=== PATIENT | male | born 1960 | race Hispanic/Latino ===

== ENCOUNTER 2017-06-11 11:09 | Observation (INO) | payer BC ==
[2017-06-11 11:25] VITALS: BMI 44.9
[2017-06-11] MEDS ORDERED: Sodium Chloride 0.9% 1,000 ML IV STA (12:33)
[2017-06-11 13:13] LABS: BASO # 0.02 K/mm3 (0.0-2.0); BASO % 0.2 % (0.0-3.0); EOS # 0.1 (0.0-0.7); EOS % 1.2 % (1.5-5.0); GRAN # 6.63 (1.4-6.5); GRAN % 76.3 % (50.0-68.0); HEMATOCRIT 40.5 % (42.0-52.0); LYMPH # 1.6 (1.2-3.4); LYMPH % 18.6 % (22.0-35.0); MEAN CELL VOLUME 82.2 fl (80.0-105.0); MEAN CORPUSCULAR HGB CONC 31.6 g/dl (31.0-37.0); MONO # 0.3 (0.1-0.6); MONO % 3.7 % (1.0-6.0); RED CELL DISTRIBUTION WIDTH 15.4 % (11.5-14.5); WHITE BLOOD COUNT 8.7 10^3/ul (4.5-11.0)
[2017-06-11 13:18] LABS: ALB/GLOB RATIO 1.4 (1.1-1.8); ALKALINE PHOSPHATASE 56 U/L (38-126); ALT/SGPT 40 U/L (7-56); AST/SGOT 42 U/L (17-59); BILIRUBIN,TOTAL 0.8 mg/dL (0.2-1.3); BLOOD UREA NITROGEN 45 mg/dL (7-21); CALCIUM 9.6 mg/dL (8.4-10.5); CARBON DIOXIDE 29 mmol/L (21-33); CHLORIDE 101 mmol/L (98-107); GFR AFRICAN-AMERICAN 47; GLUCOSE,RANDOM 148 mg/dL (70-110); POTASSIUM 4.4 mmol/L (3.6-5.0); SODIUM 142 mmol/L (132-148); TOTAL PROTEIN 7.7 g/dL (5.8-8.3)
--- NOTE | 2017-06-11 13:19 | ED PDOC ---
Arrival/HPI - General Chief Complaint: Trauma Time Seen by Provider: 06/11/17 11:33 Historian: Family (son ) EM Caveat: Altered Mental Status - History of Present Illness Narrative History of Present Illness (Text): 06/11/17 13:00 A 56 year old obese male, whose past medical history includes hypertension on 3 different medications, anxiety on 8 mg of Xanax, and insomnia, presents to the Emergency department post status fall, which occurred 4 days ago. The patient accidentally tripped and fell, he went to his PMD who diagnosed him with a concussion without a head CT. Now the patient's son brought the patient into the Emergency department for altered mental status characterized with increased somnolence, drowsy, and often abnormal speech. The patient denies any nausea, vomiting, diarrhea, fever, chills, cough, chest pain, or any other complaints at this time. The patient admits to taking "quitala." Time/Duration: < week (x 4 days ) Symptom Onset: Sudden Symptom Course: Unchanged Activities at Onset: Significant (accidental fall ) Context: Home, Tripped Past Medical History - Provider Review Nursing Documentation Reviewed: Yes - Infectious Disease Hx of Infectious Diseases: None - Tetanus Immunization Tetanus Immunization: Unknown - Cardiac Hx Cardiac Disorders: Yes ([place] 07/22/13) Hx Hypertension: Yes - Pulmonary Hx Respiratory Disorders: Yes (respiratory failure/intubated 07/22/13) Hx Pneumonia: Yes - Neurological Hx Neurological Disorder: No - HEENT Hx HEENT Disorder: No - Renal Hx Renal Disorder: No - Endocrine/Metabolic Hx Endocrine Disorders: No - Hematological/Oncological Hx Blood Disorders: Yes Hx Anemia: Yes - Integumentary Hx Dermatological Disorder: No - Musculoskeletal/Rheumatological Hx Musculoskeletal Disorders: Yes Hx Arthritis: Yes (neck) - Gastrointestinal Hx Gastrointestinal Disorders: No - Genitourinary/Gynecological Hx Genitourinary Disorders: No - Psychiatric Hx Psychophysiologic Disorder: Yes Hx Anxiety: Yes Hx Depression: Yes Hx Substance Use: No - Surgical History Hx Tonsillectomy: Yes - Suicidal Assessment Feels Threatened In Home Enviroment: No Family/Social History - Physician Review Nursing Documentation Reviewed: Yes Family/Social History: No Known Family HX Smoking Status: Former Smoker 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) Hx Substance Use: No Substance used: percocet Hx Substance Use Treatment: No Allergies/Home Meds Allergies/Adverse Reactions: Allergies No Known Allergies Allergy (Verified 06/11/17 11:39) Home Medications: Home Meds Medication Instructions Recorded Confirmed Alprazolam [Xanax] 4 mg PO BID 07/22/13 06/11/17 Review of Systems - Physician Review All systems were reviewed & negative as marked: Yes - Review of Systems Constitutional: absent: Fevers Respiratory: absent: Cough Cardiovascular: absent: Chest Pain Neurological: Speech Changes, Other (AMS; increased somnolence, drowzy, and often abnormal speech) Physical Exam - Physical Exam Physical Exam Limitations: Altered Mental Status Vital Signs Reviewed: Yes Vital Signs Temp Pulse Resp BP Pulse Ox 06/11/17 14:04 98.2 F 90 19 122/79 95 06/11/17 11:21 98.2 F 104 H 18 94/60 L 94 L Temperature: Afebrile Blood Pressure: Hypotensive Pulse: Tachycardic Respiratory Rate: Apneic Appearance: Positive for: Well-Appearing, Non-Toxic, Comfortable Pain Distress: None Mental Status: Positive for: Alert and Oriented X 3 - Systems Exam Head: Present: Normocephalic, Laceration (right side healing contusion ) Pupils: Present: PERRL Extroacular Muscles: Present: EOMI Conjunctiva: Present: Normal Mouth: Present: Moist Mucous Membranes Neck: Present: Normal Range of Motion Respiratory/Chest: Present: Clear to Auscultation, Good Air Exchange. No: Respiratory Distress, Accessory Muscle Use Cardiovascular: Present: Regular Rate and Rhythm, Normal S1, S2. No: Murmurs Abdomen: Present: Normal Bowel Sounds. No: Tenderness, Distention, Peritoneal Signs Back: Present: Normal Inspection Upper Extremity: Present: Normal Inspection. No: Cyanosis, Edema Lower Extremity: Present: Normal Inspection. No: Edema Neurological: Present: GCS=15, CN II-XII Intact, Speech Normal Skin: Present: Warm, Dry, Normal Color. No: Rashes Psychiatric: Present: Alert. No: Oriented x 3 (oriented x 2; person and place ) Medical Decision Making ED Course and Treatment: 06/11/17 13:28 Impression: A 56 year old male with AMS. Differential Diagnosis included but are not limited to: Plan: -- EKG -- Head CT -- IV Fluids -- Chest X-ray -- Urinalysis -- Reassess and disposition Progress Notes: 06/11/17 17:28 Despite hours of observation in Ed his sensorium is not clearing . His alteration of mental status has been been perisitent and is likley due to hyerpemedication, w/ possible concomitant illicit drug abue, including even possible overdose on his antiHTNsives. Pt has beennoted to be incontinent of urine and remains inaaporpiate with his speech. Will need admission for moniroing until sensorium clears as well and for dehydration. - Lab Interpretations Lab Results: 06/11/17 13:05 06/11/17 13:00 Lab Results 06/11/17 15:45: Urine Opiates Screen Negative, Urine Methadone Screen Negative, Ur Barbiturates Screen Negative, Ur Phencyclidine Scrn Negative, Ur Amphetamines Screen Negative, U Benzodiazepines Scrn Positive H, U Oth Cocaine Metabols Negative, U Cannabinoids Screen Psitive 06/11/17 13:05: WBC 8.7 D, RBC 4.93, Hgb 12.8 L, Hct 40.5 L, MCV 82.2, MCH 26.0 , MCHC 31.6, RDW 15.4 H, Plt Count 302, MPV 9.0, Gran % 76.3 H, Lymph % (Auto) 18.6 L, [place] % (Auto) 3.7, Eos % (Auto) 1.2 L, Baso % (Auto) 0.2, Gran # 6.63 H , Lymph # 1.6, [place] # 0.3, Eos # 0.1, Baso # 0.02 06/11/17 13:00: Alcohol, Quantitative < 10 06/11/17 13:00: Sodium 142, Potassium 4.4, Chloride 101, Carbon Dioxide 29, Anion Gap 16, BUN 45 H, Creatinine 1.8 H, Est GFR ( Amer) 47, Est GFR ( Non-Af Amer) 39, Random Glucose 148 H, Calcium 9.6, Total Bilirubin 0.8, AST 42 , ALT 40, Alkaline Phosphatase 56, Troponin I < 0.01, Total Protein 7.7, Albumin 4.5, Globulin 3.1, Albumin/Globulin Ratio 1.4 06/11/17 13:00: PT 12.8 H, INR 1.16 H, APTT 28.0 - RAD Interpretation Radiology Orders: 06/11/17 11:44 HEAD W/O CONTRAST [CT] Stat 06/11/17 12:28 CHEST PORTABLE [RAD] Stat - Medication Orders Current Medication Orders: Discontinued Medications Sodium Chloride (Sodium Chloride 0.9%) 1,000 mls @ 999 mls/hr IV .Q1H1M STA Stop: 06/11/17 13:33 Last Admin: 06/11/17 12:57 Dose: 999 mls/hr eMAR Start Stop Document 06/11/17 12:57 OCS (Rec: 06/11/17 12:57 OCS [id number]) Intravenous Solution Start Date 06/11/17 Start Time 12:57 End Date 06/11/17 End time 13:58 Total Infusion Time 61 - Scribe Statement The provider has reviewed the documentation as recorded by the Elisabethibowen Avilez Provider Scribe Attestation: All medical record entries made by the Scribe were at my direction and personally dictated by me. I have reviewed the chart and agree that the record accurately reflects my personal performance of the history, physical exam, medical decision making, and the department course for this patient. I have also personally directed, reviewed, and agree with the discharge instructions and disposition. Disposition/Present on Arrival - Present on Arrival Any Indicators Present on Arrival: No History of DVT/PE: No History of Uncontrolled Diabetes: No Urinary Catheter: No History of Decub. Ulcer: No History Surgical Site Infection Following: None - Disposition Have Diagnosis and Disposition been Completed?: Yes Diagnosis: Altered mental status, Dehydration Disposition: HOME/ ROUTINE Disposition Time: 17:34 Patient Plan: Admission Condition: GOOD Referrals: Akbar Buck MD [Primary Care Provider] - Follow up with primary Forms: [employer] ([place])
[2017-06-11 13:20] LABS: INR 1.16 (0.93-1.08)
[2017-06-11 13:33] LABS: TROPONIN I < 0.01 ng/mL
--- NOTE | 2017-06-11 13:55 | CT ---
PROCEDURE: CT HEAD WITHOUT CONTRAST. HISTORY: s/p fall headache COMPARISON: Images from noncontrast head CT performed 03/20/12 TECHNIQUE: Axial computed tomography images were obtained through the head/brain without intravenous contrast. Radiation dose: Total exam DLP = 814.48 mGy-cm. This CT exam was performed using one or more of the following dose reduction techniques: Automated exposure control, adjustment of the mA and/or kV according to patient size, and/or use of iterative reconstruction technique. FINDINGS: HEMORRHAGE: No intracranial hemorrhage. BRAIN: No mass effect or edema. Intracranial atherosclerosis. 2 mm probable right basal ganglia lacunar infarct. Scattered periventricular and subcortical white matter hypodensities, which are nonspecific, but often seen with chronic microvascular ischemic disease. Please note that MRI with diffusion imaging is more sensitive in the detection of acute ischemic event. VENTRICLES: No hydrocephalus. CALVARIUM: Unremarkable. PARANASAL SINUSES: Unremarkable as visualized. No significant inflammatory changes. MASTOID AIR CELLS: Unremarkable as visualized. No inflammatory changes. OTHER FINDINGS: None. IMPRESSION: 2 mm probable right basal ganglia lacunar infarct. Scattered nonspecific white matter changes.
--- NOTE | 2017-06-11 14:33 | RAD ---
HISTORY: ams COMPARISON: Chest x-ray performed 02/11/14 TECHNIQUE: Chest, one view. FINDINGS: Examination limited by habitus and hypoinflation. LUNGS: Right hilar prominence. No focal consolidation. Please note that chest x-ray has limited sensitivity for the detection of pulmonary masses. PLEURA: No significant pleural effusion identified. No definite pneumothorax . CARDIOVASCULAR: Cardiomegaly. OSSEOUS STRUCTURES: Degenerative changes. VISUALIZED UPPER ABDOMEN: Unremarkable. OTHER FINDINGS: Metallic clip projects over the left lateral chest. . IMPRESSION: Cardiomegaly. Right hilar prominence. Hypoinflation.
[2017-06-11] MEDS ORDERED: Aspirin 325 mg EC Tablets PO STA ×2 (18:42→18:45)
[2017-06-11] MEDS ORDERED: Sodium Chloride 0.9% 1,000 ML IV SCH (18:45)
[2017-06-11 19:28] LABS: CHOLESTEROL 260 mg/dL (130-200)
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
[2017-06-11] MEDS ORDERED: Pneumococcal 23-Valent Vaccine IM ONE (22:01)
[2017-06-11] MEDS ORDERED: Influenza Vaccine 60 mcg/0.5 mL SYR (4YR UP) IM ONE (22:01)
[2017-06-12 07:22] LABS: BASO # 0.02 K/mm3 (0.0-2.0); BASO % 0.3 % (0.0-3.0); EOS # 0.1 (0.0-0.7); EOS % 1.7 % (1.5-5.0); GRAN # 5.12 (1.4-6.5); GRAN % 65.5 % (50.0-68.0); HEMATOCRIT 39.7 % (42.0-52.0); LYMPH # 2.1 (1.2-3.4); LYMPH % 27.4 % (22.0-35.0); MEAN CELL VOLUME 82.9 fl (80.0-105.0); MEAN CORPUSCULAR HEMOGLOBIN 25.7 pg (25.0-35.0); MEAN PLATELET VOLUME 9.1 fl (7.0-11.0); MONO # 0.4 (0.1-0.6); MONO % 5.1 % (1.0-6.0); RED CELL DISTRIBUTION WIDTH 15.8 % (11.5-14.5); WHITE BLOOD COUNT 7.8 10^3/ul (4.5-11.0)
[2017-06-12 07:27] LABS: ALB/GLOB RATIO 1.4 (1.1-1.8); ALKALINE PHOSPHATASE 57 U/L (38-126); ALT/SGPT 34 U/L (7-56); AST/SGOT 33 U/L (17-59); BILIRUBIN,TOTAL 0.8 mg/dL (0.2-1.3); BLOOD UREA NITROGEN 33 mg/dL (7-21); CALCIUM 9.3 mg/dL (8.4-10.5); CARBON DIOXIDE 29 mmol/L (21-33); CHLORIDE 103 mmol/L (98-107); GFR AFRICAN-AMERICAN > 60; GLUCOSE,RANDOM 138 mg/dL (70-110); POTASSIUM 4.1 mmol/L (3.6-5.0); SODIUM 143 mmol/L (132-148); TOTAL PROTEIN 7.4 g/dL (5.8-8.3)
[2017-06-12] MEDS ORDERED: Aspirin 325 mg EC Tablets PO SCH (10:00)
--- NOTE | 2017-06-12 12:48 | MRI ---
PROCEDURE: MRI BRAIN WITHOUT CONTRAST HISTORY: CVA. COMPARISON: Comparison made with CT scan brain 06/11/2017. . TECHNIQUE: Multiplanar, multisequence MR images of the brain were obtained without intravenous contrast enhancement. FINDINGS: HEMORRHAGE: No acute parenchymal, subarachnoid or extra-axial hemorrhage. No evidence of hemosiderin deposition is identified on gradient echo weighted sequence DWI: No evidence of an acute or early subacute infarction seen on diffusion imaging. BRAIN PARENCHYMA: Few tiny chronic appearing lacunar type infarcts seen scattered about the deep and subcortical white matter of both cerebral hemispheres. In addition, there appears to be some very minimal chronic periventricular white matter ischemic changes as well. . Note also made of relatively symmetric lower signal changes seen in both inferior basal ganglia which are nonspecific though could represent mineralization deposits. Moderate central volume loss evidenced by slight disproportionate enlargement of the ventricles compared the sulci. VENTRICLES: No obstructive hydrocephalus. CRANIUM: No acute calvarial abnormalities. ORBITS: Orbits and contents appear grossly unremarkable. PARANASAL SINUSES/MASTOIDS: Visualized paranasal sinuses are well-developed and currently well-aerated. VASCULAR SYSTEM: Visualized major vascular flow voids at skull base are patent. OTHER FINDINGS: None. IMPRESSION: Limited motion degraded study. No acute intracranial hemorrhage. Minor chronic white matter ischemic changes. Moderate central volume loss.
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
--- NOTE | 2017-06-12 15:53 | MRI ---
PROCEDURE: MR LUMBAR SPINE WITHOUT CONTRAST HISTORY: paraplegia and ataxia COMPARISON: None available. TECHNIQUE: Multiecho multiplanar sequences were performed through the lumbar spine without the use of intravenous contrast. FINDINGS: Normal lumbar lordosis. Vertebral body heights are preserved. Small benign hemangiomas appreciate at the T12 vertebral body incidentally with remaining marrow unremarkable otherwise. Conus medullaris unremarkable at the level of L1 2 body. Paraspinal soft tissues are unremarkable. T12-L1: No disc herniation, spinal canal stenosis or neural foraminal narrowing. L1-2: No disc herniation, spinal canal stenosis or neural foraminal narrowing. L2-3: No disc herniation, spinal canal stenosis or neural foraminal narrowing. L3-4: There is a borderline central stenosis caused by a marked facet joint degenerative change and generalized disc bulging with no significant central stenosis resulting. No disc herniation. L4-5: Asymmetric lateral recess stenosis seen greater the left and right sides due to asymmetric facet arthropathy. Generalized disc bulging contributes to this appearance with a borderline central stenosis resulting overall. No disc herniation or significant neural foraminal stenosis. L5-S1: No disc herniation, spinal canal stenosis or neural foraminal narrowing. Moderate facet joint degenerative changes are identified. OTHER FINDINGS: None. IMPRESSION: Only borderline central stenoses are identified on degenerative basis, concentrated at the lateral recesses due to disc bulging and facet arthropathy at the mid to inferior lumbar spine. No moderate or severe spinal stenosis appreciated. No disc herniation throughout the examination.
--- NOTE | 2017-06-12 16:00 | MRI ---
PROCEDURE: MR THORACIC SPINE WITHOUT CONTRAST HISTORY: lower ext. weakness and ataxia COMPARISON: None available. TECHNIQUE: Multiecho multiplanar sequences were performed through the thoracic spine without the use of intravenous contrast. FINDINGS: ALIGNMENT: Normal thoracic spinal alignment. Normal thoracic kyphosis. VERTEBRA: Vertebral body height are preserved. MARROW: Benign hemangiomas are identified at T2, T7 and T11 with remaining marrow unremarkable otherwise. PARASPINAL SOFT TISSUES: Unremarkable. CORD: Unremarkable thoracic cord. No volume loss, signal abnormality or syrinx. DISCS: No disc herniation, spinal canal stenosis, or neuroforaminal narrowing. Multilevel disc desiccation is seen diffusely. OTHER FINDINGS: None. IMPRESSION: No disc herniation, central canal or neural foraminal stenosis identified. Thoracic spinal cord appears normal in course caliber contour and intrinsic signal as well as overall volume.
--- NOTE | 2017-06-12 16:12 | CARD ---
APPROVED REPORT EKG Measurement Heart [id number] <Conclusion> Sinus tachycardia Inferior infarct, age undetermined Possible Anterior infarct, age undetermined Abnormal ECG
--- NOTE | 2017-06-12 17:02 | US ---
PROCEDURE: Bilateral carotid artery duplex ultrasound HISTORY: Carotid stenosis PHYSICIAN(S): Ole Buck MD. TECHNIQUE: Duplex sonography and color-flow Doppler were used to evaluate the carotid bifurcations and limited segments of the vertebral arteries bilaterally. The exam is limited by body habitus, tortuous vessels, and the patient's breathing pattern. FINDINGS: There is mild smooth heterogeneous plaque noted at the carotid bifurcations bilaterally. The peak systolic velocity in the proximal right internal carotid artery is 61 cm/sec. This corresponds to a 20 to 39% proximal right ICA stenosis. Normal systolic velocities are noted in the proximal right external carotid artery. There is antegrade flow in the right vertebral artery. The peak systolic velocity in the proximal left internal carotid artery is 45cm/ sec. This corresponds to a 20 to 39% proximal left ICA stenosis. Normal systolic velocities are noted in the proximal left external carotid artery. The left vertebral artery is not visualized. IMPRESSION: 1. Bilateral 20-39% proximal ICA stenoses. 2. Antegrade flow in the right vertebral artery. The left vertebral artery is not visualized. 3. Limited study.
[2017-06-12 17:55] LABS: URINE APPEARANCE CLEAR (CLEAR); URINE BILIRUBIN NEGATIVE (NEGATIVE); URINE BLOOD TRACE-LYSED (NEGATIVE); URINE COLOR YELLOW (YELLOW); URINE GLUCOSE (UA) NEGATIVE (NEGATIVE); URINE KETONE NEGATIVE (NEGATIVE); URINE LEUKOCYTE ESTERASE NEGATIVE Leu/uL (NEGATIVE); URINE PROTEIN TRACE mg/dL (<30 mg/dL); URINE UROBILINOGEN 0.2 E.U./dL (<1 E.U./dL)
[2017-06-12 18:00] LABS: URINE EPITHELIAL CELLS 0 - 2 /hpf (0-5); URINE WBC 0 - 2 /hpf (0-6)
[2017-06-12 18:14] LABS: URINE URIC ACID CRYSTALS SMALL /hpf
[2017-06-12 18:15] LABS: URINE BACTERIA SMALL (NEG)
[2017-06-12] MEDS ORDERED: Sodium Chloride 0.9% 1,000 ML IV SCH (19:00)
--- NOTE | 2017-06-13 06:52 | CP.PCM.PN ---
Subjective - Date & Time of Evaluation Date of Evaluation: 06/13/17 Time of Evaluation: 06:48 - Subjective Subjective: mr. Ballard was seen and examined at the bedside. He is alert, oriented in all spheres. He denies any headache, discomfort, lightheadedness, weakness, nausea, or vomiting. He states of trying to limit his opiate intake. There was no untoward events overnight. Objective - Vital Signs/Intake and Output Vital Signs (last 24 hours): Temp Pulse Resp BP Pulse Ox 98.2 F 76 20 106/77 98 06/12/17 23:15 06/13/17 05:32 06/12/17 23:15 06/12/17 23:15 06/12/17 23:15 Intake and Output: 06/12/17 06/13/17 18:59 06:59 Intake Total 300 Output Total 300 Balance 0 - Medications Medications: Current Medications Alprazolam (Xanax) 1 mg PO TID PRN; Protocol PRN Reason: Anxiety Last Admin: 06/12/17 21:19 Dose: 1 mg Escitalopram Oxalate (Lexapro) 10 mg PO DAILY [facility] Last Admin: 06/12/17 11:19 Dose: 10 mg Heparin Sodium (Porcine) (Heparin) 5,000 units SC Q12 [facility] PRN Reason: Protocol Last Admin: 06/12/17 21:19 Dose: 5,000 units Sodium Chloride (Sodium Chloride 0.9%) 1,000 mls @ 75 mls/hr IV .[id number] [facility] Last Admin: 06/12/17 19:47 Dose: 75 mls/hr Lisinopril (Zestril) 40 mg PO DAILY [facility] Quetiapine Fumarate (Seroquel) 100 mg PO HS [facility] PRN Reason: Protocol Last Admin: 06/12/17 21:19 Dose: 100 mg - Labs Labs: 06/12/17 06:00 06/12/17 06:00 PT 12.8 SECONDS (9.4-12.5) H 06/11/17 13:00 INR 1.16 (0.93-1.08) H 06/11/17 13:00 APTT 28.0 Seconds (25.1-36.5) 06/11/17 13:00 - Constitutional Appears: No Acute Distress - Head Exam Head Exam: ATRAUMATIC - Neurological Exam Neurological Exam: Alert, Awake, CN II-XII Intact, Oriented x3 Neuro motor strength exam: Left Upper Extremity: 5, Right Upper Extremity: 5, Left Lower Extremity: 5, Right Lower Extremity: 5 Additional comments: He is able to follow simple commands. Sensation remains intact. Assessment and Plan (1) Gait instability Assessment & Plan: Case discussed with Dr. Sotomayor, continue current medical and physical therapies. Recommends OT eval and treat. Status: Acute
[2017-06-13 07:20] LABS: BASO # 0.03 K/mm3 (0.0-2.0); BASO % 0.4 % (0.0-3.0); EOS # 0.2 (0.0-0.7); EOS % 2.4 % (1.5-5.0); GRAN # 4.01 (1.4-6.5); GRAN % 57.8 % (50.0-68.0); HEMATOCRIT 41.9 % (42.0-52.0); LYMPH # 2.4 (1.2-3.4); LYMPH % 34.1 % (22.0-35.0); MEAN CELL VOLUME 82.5 fl (80.0-105.0); MEAN CORPUSCULAR HEMOGLOBIN 25.8 pg (25.0-35.0); MEAN CORPUSCULAR HGB CONC 31.3 g/dl (31.0-37.0); MONO # 0.4 (0.1-0.6); MONO % 5.3 % (1.0-6.0); RED CELL DISTRIBUTION WIDTH 15.6 % (11.5-14.5)
[2017-06-13 07:59] LABS: ALB/GLOB RATIO 1.4 (1.1-1.8); ALKALINE PHOSPHATASE 59 U/L (38-126); ALT/SGPT 37 U/L (7-56); AST/SGOT 28 U/L (17-59); BILIRUBIN,TOTAL 0.8 mg/dL (0.2-1.3); BLOOD UREA NITROGEN 22 mg/dL (7-21); CALCIUM 8.9 mg/dL (8.4-10.5); CARBON DIOXIDE 28 mmol/L (21-33); CHLORIDE 103 mmol/L (98-107); GFR AFRICAN-AMERICAN > 60; GLUCOSE,RANDOM 131 mg/dL (70-110); POTASSIUM 4.3 mmol/L (3.6-5.0); SODIUM 142 mmol/L (132-148); TOTAL PROTEIN 6.8 g/dL (5.8-8.3)
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
--- NOTE | 2017-06-13 17:53 | CARD ---
APPROVED REPORT EXAM: Two-dimensional and M-mode echocardiogram with Doppler and color Doppler. INDICATION CVA/TIA 2D DIMENSIONS Left Atrium (2D)3.9 (1.6-4.0cm)IVSd1.2 (0.7-1.1cm) LVDd4.7 (3.9-5.9cm)PWd1.2 (0.7-1.1cm) LVDs3.3 (2.5-4.0cm)FS (%) 28.4 % LVEF (%)54.8 (>50%) M-Mode DIMENSIONS Aortic Root3.70 (2.2-3.7cm)Aortic Cusp Exc.1.90 (1.5-2.0cm) Aortic Valve AoV Peak Tqqwqtnd968.0cm/sAoV VTI30.3cmAO Peak GR.10mmHg LVOT Peak Iibgnvfj37.8cm/sLVOT VTI14.10cmAO Mean GR.6mmHg Mitral Valve MV E Ilsmriwg80.8cm/sMV A Ofvbdyez18.4cm/sE/A ratio0.9 TDI Lateral E' Peak V12.20cm/sMedial E' Peak V10.50cm/sE/Lateral E'5.6 E/Medial E'6.6 Pulmonary Valve PV Peak Igegfxsp393.0cm/sPV Peak Grad.5mmHg Tricuspid Valve TR Peak Dkohoiwk214tp/sRAP [id number] Peak Gr.28mmHg [id number] LEFT VENTRICLE The left ventricle is normal size. There is mild concentric left ventricular hypertrophy. The left ventricular function is normal.EF-55% There is normal LV segmental wall motion. Transmitral Doppler flow pattern is Grade III-reversible restrictive diastolic dysfunction. No left ventricle thrombus noted on this study. There is no ventricular septal defect visualized. There is no left ventricular aneurysm. There is no mass noted in the left ventricle. RIGHT VENTRICLE The right ventricle is normal size. There is normal right ventricular wall thickness. The right ventricular systolic function is normal. ATRIA The left atrium size is normal. The right atrium size is normal. The interatrial septum is intact with no evidence for an atrial septal defect. AORTIC VALVE The aortic valve is thickened but opens well. The aortic valve is mildly to moderately sclerotic. No aortic regurgitation is present. There is no aortic valvular stenosis. There is no aortic valvular vegetation. MITRAL VALVE The mitral valve is thickened but opens well. Mitral annular calcification is mild. Mitral regurgitation is trace. There is no mitral valve stenosis. There is no evidence of mitral valve prolapse. TRICUSPID VALVE The tricuspid valve is normal in structure. There is trace tricuspid regurgitation.RVSP-38 mmof hg. There is no tricuspid valve stenosis. There is no tricuspid valve prolapse or vegetation. PULMONIC VALVE The pulmonary valve is normal in structure. There is no pulmonic valvular regurgitation. There is no pulmonic valvular stenosis. GREAT VESSELS The aortic root is normal in size. The ascending aorta is normal in size. The pulmonary artery is normal. The IVC is normal in size and collapses >50% with inspiration. PERICARDIAL EFFUSION There is no pleural effusion. There is no pericardial effusion. <Conclusion> Normal chamber Size. EF-55% Mild LVH Mitral regurgitation is trace. There is trace tricuspid regurgitation.RVSP-38 mmof Hg. No Vegetation or Thrombus Noted.
--- NOTE | 2017-06-13 19:02 | CP.PCM.PCO ---
Physician Communication Note - Physician Communication Note Physician Communication Note: pt will be f/u tomorrow, meds resumed by
[2017-06-13 23:59] VITALS: O2SAT 95
[2017-06-14 06:33] LABS: BASO # 0.02 K/mm3 (0.0-2.0); BASO % 0.3 % (0.0-3.0); EOS # 0.2 (0.0-0.7); EOS % 2.5 % (1.5-5.0); GRAN # 4.42 (1.4-6.5); GRAN % 58.6 % (50.0-68.0); HEMATOCRIT 42.4 % (42.0-52.0); LYMPH # 2.5 (1.2-3.4); LYMPH % 33.3 % (22.0-35.0); MEAN CELL VOLUME 82.8 fl (80.0-105.0); MEAN CORPUSCULAR HEMOGLOBIN 25.8 pg (25.0-35.0); MEAN CORPUSCULAR HGB CONC 31.1 g/dl (31.0-37.0); MEAN PLATELET VOLUME 9.6 fl (7.0-11.0); MONO # 0.4 (0.1-0.6); MONO % 5.3 % (1.0-6.0); RED CELL DISTRIBUTION WIDTH 15.8 % (11.5-14.5); WHITE BLOOD COUNT 7.5 10^3/ul (4.5-11.0)
[2017-06-14 07:10] LABS: ALB/GLOB RATIO 1.3 (1.1-1.8); ALKALINE PHOSPHATASE 53 U/L (38-126); ALT/SGPT 35 U/L (7-56); AST/SGOT 33 U/L (17-59); BILIRUBIN,TOTAL 0.6 mg/dL (0.2-1.3); BLOOD UREA NITROGEN 19 mg/dL (7-21); CALCIUM 8.8 mg/dL (8.4-10.5); CARBON DIOXIDE 28 mmol/L (21-33); CHLORIDE 104 mmol/L (98-107); GFR AFRICAN-AMERICAN > 60; GLUCOSE,RANDOM 134 mg/dL (70-110); POTASSIUM 4.3 mmol/L (3.6-5.0); SODIUM 142 mmol/L (132-148); TOTAL PROTEIN 7.2 g/dL (5.8-8.3)
[2017-06-14 11:57] VITALS: BP 144/87; PULSE 86; RESP 18; TEMP 98.3
--- NOTE | 2017-06-15 03:49 | CON ---
DATE: HISTORY: This creative services writer is following up on this patient as per Dr. Vigil's request, who was internal combustion engine assembler over this weekend. The patient was admitted on the medical side for confusion. The patient also has history of depression and anxiety, that is why psych consult was called initially. As per Dr. Vigil's consult, the patient was willing to sign himself into the psychiatric inpatient unit for further evaluation and stabilization. Today, the patient was seen and examined. The patient reported that he feels much better. The patient reported that he feels normal himself. The patient denied being depressed. Denied thoughts of harming himself or others. Denied any psychotic symptoms. The patient reported that he sees Dr. Deejay Mcgowan regularly. The patient reported that he tolerates medications well, denied seeing any side effects, and none was observed. The patient has a followup appointment with him. The patient vital signs seems to be stable. Medications reviewed. The patient was compliant with Xanax, Lexapro as well as Seroquel, which would be recommended to be continued. The patient reported that he has all medications home. MENTAL STATUS EXAM: The patient presented to be alert and oriented, pleasant, cooperative, no signs of depression. Fair eye contact. Speech was normal rate, tone, quality, and quantity. Affect was bright. Mood congruent. Thought process was coherent and goal directed. Thought content, the patient denied visual, auditory, or tactile hallucinations. Denied paranoid ideation. The patient denied thoughts of harming himself or others. Denied intent or plan. Insight and judgment fair. Impulses are well controlled. IMPRESSION: As per history, patient has depression and anxiety. The patient had altered mental status, most likely due to stroke. The patient is aware of his medical condition. PLAN: This creative services writer recommends to follow up with outpatient psychiatrist, Dr. Deejay Mcgowan. The patient has all of the medications at home. The patient reported being compliant with the medication. The patient presented to be not in any imminent danger to self or others. This creative services writer will sign off. Should you have any questions, give me a call back. Thank you very much for letting me participate in care of your patient. Collaterals from the nursing staff, the patient is compliant with the medication. No psychosis, no agitation. The patient was participating in treatment plan. Thank you so much. Kaila Philip MD
--- NOTE | 2017-06-15 14:57 | CP.PCM.DIS ---
Provider - Provider Date of Admission: 06/11/17 17:35 Attending physician: Eri Loya MD Primary care physician: Akbar Buck MD [facility] - Lab Results Lab Results: Most Recent Lab Values WBC 7.5 10^3/ul (4.5-11.0) 06/14/17 05:30 RBC 5.12 10^6/uL (3.5-6.1) 06/14/17 05:30 Hgb 13.2 g/dL (14.0-18.0) L 06/14/17 05:30 Hct 42.4 % (42.0-52.0) 06/14/17 05:30 MCV 82.8 fl (80.0-105.0) 06/14/17 05:30 MCH 25.8 pg (25.0-35.0) 06/14/17 05:30 MCHC 31.1 g/dl (31.0-37.0) 06/14/17 05:30 RDW 15.8 % (11.5-14.5) H 06/14/17 05:30 Plt Count 282 10^3/uL (120.0-450.0) 06/14/17 05:30 MPV 9.6 fl (7.0-11.0) 06/14/17 05:30 Gran % 58.6 % (50.0-68.0) 06/14/17 05:30 Lymph % (Auto) 33.3 % (22.0-35.0) 06/14/17 05:30 [place] % (Auto) 5.3 % (1.0-6.0) 06/14/17 05:30 Eos % (Auto) 2.5 % (1.5-5.0) 06/14/17 05:30 Baso % (Auto) 0.3 % (0.0-3.0) 06/14/17 05:30 Gran # 4.42 (1.4-6.5) 06/14/17 05:30 Lymph # 2.5 (1.2-3.4) 06/14/17 05:30 [place] # 0.4 (0.1-0.6) 06/14/17 05:30 Eos # 0.2 (0.0-0.7) 06/14/17 05:30 Baso # 0.02 K/mm3 (0.0-2.0) 06/14/17 05:30 PT 12.8 SECONDS (9.4-12.5) H 06/11/17 13:00 INR 1.16 (0.93-1.08) H 06/11/17 13:00 APTT 28.0 Seconds (25.1-36.5) 06/11/17 13:00 Sodium 142 mmol/L (132-148) 06/14/17 05:30 Potassium 4.3 mmol/L (3.6-5.0) 06/14/17 05:30 Chloride 104 mmol/L (98-107) 06/14/17 05:30 Carbon Dioxide 28 mmol/L (21-33) 06/14/17 05:30 Anion Gap 14 (10-20) 06/14/17 05:30 BUN 19 mg/dL (7-21) 06/14/17 05:30 Creatinine 1.3 mg/dl (0.8-1.5) 06/14/17 05:30 Est GFR ( Amer) > 60 06/14/17 05:30 Est GFR (Non-Af Amer) 57 06/14/17 05:30 POC Glucose (mg/dL) 124 mg/dL (65-110) H 06/14/17 08:27 Random Glucose 134 mg/dL (70-110) H 06/14/17 05:30 Hemoglobin A1c 8.4 % (4.2-6.5) H 06/12/17 06:00 Calcium 8.8 mg/dL (8.4-10.5) 06/14/17 05:30 Total Bilirubin 0.6 mg/dL (0.2-1.3) 06/14/17 05:30 AST 33 U/L (17-59) 06/14/17 05:30 ALT 35 U/L (7-56) 06/14/17 05:30 Alkaline Phosphatase 53 U/L (38-126) 06/14/17 05:30 Total Creatine Kinase 474 U/L (35-230) H 06/13/17 08:19 CK-MB (CK-2) 1.2 ng/mL (0.0-3.6) 06/13/17 08:19 CK-MB (CK-2) % Cancelled 06/11/17 23:30 Troponin I < 0.01 ng/mL 06/11/17 13:00 Total Protein 7.2 g/dL (5.8-8.3) 06/14/17 05:30 Albumin 4.1 g/dL (3.0-4.8) 06/14/17 05:30 Globulin 3.1 gm/dL 06/14/17 05:30 Albumin/Globulin Ratio 1.3 (1.1-1.8) 06/14/17 05:30 Triglycerides 266 mg/dL (35-160) H 06/11/17 13:00 Cholesterol 260 mg/dL (130-200) H 06/11/17 13:00 LDL Cholesterol Direct 177 mg/dL (0-129) H 06/11/17 13:00 HDL Cholesterol 35 mg/dL (29-60) 06/11/17 13:00 TSH 3rd Generation 1.32 mIU/mL (0.46-4.68) 06/11/17 13:00 Urine Color Yellow (YELLOW) 06/12/17 15:30 Urine Appearance Clear (CLEAR) 06/12/17 15:30 Urine pH 6.0 (4.7-8.0) 06/12/17 15:30 Ur Specific [place] 1.020 (1.005-1.035) 06/12/17 15:30 Urine Protein Trace mg/dL (<30 mg/dL) H 06/12/17 15:30 Urine Glucose (UA) Negative mg/dL (NEGATIVE) 06/12/17 15:30 Urine Ketones Negative mg/dL (NEGATIVE) 06/12/17 15:30 Urine Blood Trace-lysed (NEGATIVE) H 06/12/17 15:30 Urine Nitrate Negative (NEGATIVE) 06/12/17 15:30 Urine Bilirubin Negative (NEGATIVE) 06/12/17 15:30 Urine Urobilinogen 0.2 E.U./dL (<1 E.U./dL) 06/12/17 15:30 Ur Leukocyte Esterase Negative [place]/uL (NEGATIVE) 06/12/17 15:30 Urine RBC 1 - 3 /hpf (0-2) 06/12/17 15:30 Urine WBC 0 - 2 /hpf (0-6) 06/12/17 15:30 Ur Epithelial Cells 0 - 2 /hpf (0-5) 06/12/17 15:30 Uric Acid Crystals Small /hpf 06/12/17 15:30 Urine Bacteria Small (NEG) 06/12/17 15:30 Ur Random Creatinine 118 mg/dL 06/12/17 15:30 U Random Total Protein Cancelled 06/12/17 15:30 Ur Random Sodium 124 meq/L 06/12/17 15:30 Ur Random Potassium 20.6 meq/L 06/12/17 15:30 Urine Opiates Screen Negative (NEGATIVE) 06/11/17 15:45 Urine Methadone Screen Negative (NEGATIVE) 06/11/17 15:45 Ur Barbiturates Screen Negative (NEGATIVE) 06/11/17 15:45 Ur Phencyclidine Scrn Negative (NEGATIVE) 06/11/17 15:45 Ur Amphetamines Screen Negative (NEGATIVE) 06/11/17 15:45 U Benzodiazepines Scrn Positive (NEGATIVE) H 06/11/17 15:45 [place] 1.1 mmol/L (0.5-1.3) 06/11/17 13:00 U Oth Cocaine Metabols Negative (NEGATIVE) 06/11/17 15:45 U Cannabinoids Screen Psitive (NEGATIVE) 06/11/17 15:45 Alcohol, Quantitative < 10 mg/dL (0-10) 06/11/17 13:00 Discharge Exam - Head Exam Head Exam: ATRAUMATIC Discharge Plan - Discharge Medications Prescriptions: metFORMIN [glucOPHAGE] 500 mg PO DAILY #30 tab - Follow Up Plan Condition: GOOD Disposition: HOME/ ROUTINE Instructions: Altered Mental Status (GEN), Fall Prevention (GEN) Referrals: Akbar Buck MD [Primary Care Provider] -
== END 2017-06-14 12:50 | disposition home or self-care (01) ==
LOC: ED 11:09 → ERH 17:35 → 3RSO 19:22
PROVIDERS: ADMIT Internal Medicine; ATTEND Hospitalist
DX: N17.9 Acute kidney failure, unspecified (principal); M62.82 Rhabdomyolysis; E86.0 Dehydration; R41.82 Altered mental status, unspecified; I10 Essential (primary) hypertension; E11.9 Type 2 diabetes mellitus without complications; F41.9 Anxiety disorder, unspecified; E78.5 Hyperlipidemia, unspecified; F32.9 Major depressive disorder, single episode, unspecified; E66.01 Morbid (severe) obesity due to excess calories; R26.81 Unsteadiness on feet; Z87.891 Personal history of nicotine dependence; Z91.81 History of falling
CPT/HCPCS: 36415; 70450; 70551; 71010; 72146; 72148; 80053; 80061; 80178; 81001; 82436; 82550; 82553; 82570; 82948; 83036; 84132; 84156; 84300; 84443; 84484; 85025; 85610; 85730; 87040; 87086; 92523; 93005; 93306; 93880; 96360; 97116; 97162; 99285; G0378; G0480; G8978; G8979; G9174; G9175; J1644; J7040

== ENCOUNTER 2017-08-04 10:07 | Inpatient (IN) | payer BC ==
[2017-08-04 10:07] VITALS: BMI 44.9
--- NOTE | 2017-08-04 10:38 | ED PDOC ---
Arrival/HPI - General Chief Complaint: Altered Mental Status Time Seen by Provider: 08/04/17 10:34 Historian: Patient, Family (son) - History of Present Illness Narrative History of Present Illness (Text): 08/04/17 10:35 A 56 year old male, whose past medical history includes hypertension, diabetes type 2, NC, pneumonia, anemia, depression, and anxiety, whom is accompanied by son, presents to the emergency department complaining of confusion for at lease 1 week. Patient reports experiencing auditory/visual hallucinations as well. Patient notes sometimes he will look at people and visualize them as family members, has been seeing a cat as well. Also, sometimes patient believes he hears his talking to him but his is not present. Per son, patient has become worse since ~ 3 days ago, with patient becoming increasingly confused and speech changes (mumbling in the morning and rest of the day answers in slow speech). Also, son mentions patient randomly asks questions about past family members. Patient denies any fever, chills, cough, chest pain, shortness of breath, abdominal pain, nausea, vomiting, diarrhea, numbness/tingling to extremities/face, appetite changes, urinary output changes, difficulty ambulating, weakness, headache, SI/HI, or any other complaints at this time. 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 Also, patient's son mentions patient takes antidepressant Alprazolam for anixety and depression; Oxycodone for rib pain; diabetes medications as well. Patient has + psychiatric (depression, never admitted to hospital however), no CVA, or sleep apnea history. PMD: Dr. Akbar Buck Psychiatrist: Dr. Mcgowan 08/04/17 11:13 08/04/17 16:25 08/04/17 16:27 pt is right hand dominate Time/Duration: > week Symptom Onset: Sudden Symptom Course: Unchanged Severity Level: 5 Activities at Onset: Rest Context: Home Past Medical History - Provider Review Nursing Documentation Reviewed: Yes - Travel History Have you recently traveled outside [place] w/in the past 3 mons?: No - Past History Past History: No Previous - Infectious Disease Hx of Infectious Diseases: None - Tetanus Immunization Tetanus Immunization: Unknown - Cardiac Hx Cardiac Disorders: Yes (NC 07/22/13) Hx NC: Yes Hx Hypertension: Yes - Pulmonary Hx Respiratory Disorders: Yes (respiratory failure/intubated 07/22/13) Hx Pneumonia: Yes - Neurological Hx Neurological Disorder: No - HEENT Hx HEENT Disorder: No - Renal Hx Renal Disorder: No - Endocrine/Metabolic Hx Endocrine Disorders: No Hx Diabetes Mellitus Type 2: Yes - Hematological/Oncological Hx Blood Disorders: Yes Hx Anemia: Yes - Integumentary Hx Dermatological Disorder: Yes Other/Comment: tatoos, scraps to left arm, lle, redness to both knees, r forehead abrasion - Musculoskeletal/Rheumatological Hx Falls: Yes (tripped and fell today) - Gastrointestinal Hx Gastrointestinal Disorders: Yes (obese) - Genitourinary/Gynecological Hx Genitourinary Disorders: No - Psychiatric Hx Psychophysiologic Disorder: Yes Hx Anxiety: Yes Hx Depression: Yes Hx Substance Use: No Other/Comment: former alcoholic quit 1993, quit smoking 13 yrs ago - Surgical History Hx Tonsillectomy: Yes - Anesthesia Hx Anesthesia: Yes Hx Anesthesia Reactions: No Hx Malignant Hyperthermia: No - Suicidal Assessment Feels Threatened In Home Enviroment: No Family/Social History - Physician Review Nursing Documentation Reviewed: Yes Family/Social History: No Known Family HX Smoking Status: Former Smoker Hx Alcohol Use: Yes (former alcoholic quit 1993) Hx Substance Use: No Substance used: percocet Hx Substance Use Treatment: No Allergies/Home Meds Allergies/Adverse Reactions: Allergies No Known Allergies Allergy (Verified 06/11/17 11:39) Home Medications: Home Meds Medication Instructions Recorded Confirmed Escitalopram [Lexapro] 20 mg PO DAILY 06/11/17 07/16/17 Lisinopril [Zestril] 40 mg PO BID 06/11/17 07/16/17 buPROPion XL [Wellbutrin XL] 300 mg PO QAM 06/11/17 07/16/17 Review of Systems - Physician Review All systems were reviewed & negative as marked: Yes - Review of Systems Constitutional: absent: Fevers, Night Sweats, Other (no diffculty ambulating) Eyes: Normal ENT: Normal Respiratory: absent: SOB, Cough Cardiovascular: absent: Chest Pain Gastrointestinal: absent: Abdominal Pain, Diarrhea, Nausea, Vomiting, Appetite Changes Genitourinary Male: absent: Urinary Output Changes Musculoskeletal: Normal Skin: Normal Neurological: Speech Changes (mumbling in the morning and throughout the day answer with slow speech). absent: Headache, Focal Weakness, Other (no numbness/ tingling to extremities/face) Psychiatric: absent: Suicidal Ideation, Other (no homicidal ideation; patient experiencing confusion and auditory/visual hallucinations) Physical Exam Vital Signs Reviewed: Yes Vital Signs Temp Pulse Resp BP Pulse Ox 08/04/17 14:21 111 H 18 146/91 H 95 08/04/17 12:58 126 H 18 131/92 H 94 L 08/04/17 10:16 98.9 F 123 H 16 149/78 88 L Temperature: Afebrile Blood Pressure: Normal Pulse: Tachycardic Respiratory Rate: Other (decr pulse ox) Appearance: Positive for: Well-Appearing, Non-Toxic, Comfortable, Other ( uncomfortable, NAD, resting in bed, alert/awake, GCS = 15, oriented x 2 (not to date/time), cooperative, follows command with ease) Pain Distress: None Mental Status: Positive for: Alert and Oriented X 3 Finger Stick Blood Glucose: 123 - Systems Exam Head: Present: Atraumatic, Normocephalic Pupils: Present: PERRL Extroacular Muscles: Present: EOMI Conjunctiva: Present: Normal Ears: Present: Normal Mouth: Present: Moist Mucous Membranes Pharnyx: Present: Normal Nose (External): Present: Atraumatic Neck: Present: Normal Range of Motion, Trachea Midline. No: MIDLINE TENDERNESS Respiratory/Chest: Present: Clear to Auscultation, Good Air Exchange, Other ( CTA b/l, no w/r/r, no accessory muscle use noted, no tachypenia). No: Respiratory Distress, Accessory Muscle Use, Wheezes Cardiovascular: Present: Regular Rate and Rhythm, Normal S1, S2. No: Murmurs Abdomen: Present: Normal Bowel Sounds, Other (well nourished/obese male, no focal tenderness, no masses/rebound/guarding/rigidity, no castillo's sign, no mcburney's point tenderness). No: Tenderness, Distention, Peritoneal Signs Back: Present: Normal Inspection. No: Midline Tenderness Upper Extremity: Present: Normal Inspection, Normal ROM, NORMAL PULSES, Neurovascularly Intact, Capillary Refill < 2s. No: Cyanosis, Edema Lower Extremity: Present: Normal Inspection, NORMAL PULSES, Normal ROM, Capillary Refill < 2 s. No: Edema Neurological: Present: GCS=15, CN II-XII Intact, Speech Normal, Other (NIH stroke scale ~ 0) Skin: Present: Warm, Dry, Normal Color. No: Rashes Psychiatric: Present: Alert, Oriented x 3, Normal Insight, Normal Concentration , Other (mild flat affect) Medical Decision Making ED Course and Treatment: 08/04/17 10:40 Impression: 56 year old male with confusion and auditory/visual hallucinations. Plan: AMS -- EKG -- Head CT -- Chest X-ray -- Labs -- IV Fluids -- Thiamine -- Urinalysis -- Reassess and disposition Prior Visits: Notes and results from previous visits were reviewed. Patient was last seen in the emergency department on 07/16/2017 for s/p fall with right sided arm numbness and right sided rib/upper abdominal pain. Patient was d/c home. Progress Notes: 08/04/2017 11:[address] FINDINGS: HEMORRHAGE: No intracranial hemorrhage. BRAIN: No mass effect or edema. Intracranial atherosclerosis. Dilated perivascluar spaces vs chronic lacunar infarcts about basal ganglia. The dya-white matter differentiation appears intact. Please note that MRI with diffusion iamging is more sensitive in the detection of acute ischmiec event. VENTRICLES: No hydrocephalus. CALVARIUM: Unremarkable. PARANASAL SINUSES: Unremarkable as visualized. No significant inflammatory changes. MASTOID AIR CELLS: Unremarkable as visualized. No inflammatory changes. OTHER FINDINGS: None. IMPRESSION: No acute intracranial pathology identified. Additional findigns as above. Dictator: Elizabeth Bright MD 08/04/2017 12:04 Chest X-ray IMPRESSION: Marked elevation of the right hemidiaphragm. Hypoinflation. Dictator: Elizabeth Bright MD 08/04/17 14:[address] Stallworth juvenile corrections officer for Dr. Buck's patient. He has been made aware of patient's medical presentation in the ED and agrees with ED mgt/ txt/dx and agrees with recommendation of admission. Also, would like to consult with psychiatry. 08/04/17 16:16 pt is currently at baseline pt continues to feel "not himself" pt/son are made aware of patient's medical results agrees with admission Re-evaluation Time: 15:30 Reassessment Condition: Improving,but remains with symptoms - Lab Interpretations Lab Results: 08/04/17 10:50 08/04/17 10:50 Lab Results 08/04/17 11:30: Urine Opiates Screen Negative, Urine Methadone Screen Negative, Ur Barbiturates Screen Negative, Ur Phencyclidine Scrn Negative, Ur Amphetamines Screen Negative, U Benzodiazepines Scrn Positive, U Oth Cocaine Metabols Negative, U Cannabinoids Screen Negative 08/04/17 11:30: Urine Color Yellow, Urine Appearance Clear, Urine pH 6.0, Ur Specific [place] 1.020, Urine Protein Negative, Urine Glucose (UA) Negative, Urine Ketones Negative, Urine Blood Small H, Urine Nitrate Negative, Urine Bilirubin Negative, Urine Urobilinogen 0.2, Ur Leukocyte Esterase Negative, Urine RBC 5 - 10, Urine WBC 0 - 2, Ur Epithelial Cells None, Amorphous Sediment Small, Urine Bacteria Many 08/04/17 10:50: Salicylates < 1 L, Acetaminophen < 10.0 L 08/04/17 10:50: TSH 3rd Generation 1.71, Alcohol, Quantitative < 10 08/04/17 10:50: Sodium 142, Potassium 3.4 L, Chloride 100, Carbon Dioxide 28, Anion Gap 17, BUN 12, Creatinine 1.1, Est GFR ( Amer) > 60, Est GFR (Non- Af Amer) > 60, Random Glucose 115 H, Calcium 9.6, Phosphorus 2.8, Magnesium 1.8 , Total Bilirubin 0.8, AST 29, ALT 49, Alkaline Phosphatase 67, Lactate Dehydrogenase 618, Total Creatine Kinase 304 H, CK-MB (CK-2) 3.7 H, CK-MB (CK-2 ) % Cancelled, Troponin I < 0.01, Total Protein 7.1, Albumin 4.2, Globulin 3.0, Albumin/Globulin Ratio 1.4 08/04/17 10:50: WBC 5.9 D, RBC 4.88, Hgb 12.6 L, Hct 41.2 L, MCV 84.4, MCH 25.8 , MCHC 30.6 L, RDW 15.8 H, Plt Count 277, MPV 9.7, Gran % 59.7, Lymph % (Auto) 30.5, [place] % (Auto) 5.6, Eos % (Auto) 3.9, Baso % (Auto) 0.3, Gran # 3.54, Lymph # 1.8, [place] # 0.3, Eos # 0.2, Baso # 0.02 I have reviewed the lab results: Yes Interpretation: Abnormal lab values (+ benzos) - RAD Interpretation Radiology Orders: 08/04/17 11:09 HEAD W/O CONTRAST [CT] Stat 08/04/17 11:10 CHEST TWO VIEWS (PA/LAT) [RAD] Stat Communications Consultant: Radiologist - EKG Interpretation EKG Interpretation (Text): 08/04/17 16:18 Sinus tach at 120 bpm, LAD, no ectopy, diffuse low voltage anterior/inf leads, qs in leads III, F, V1-3, no st-t changes, ABNL EKG; no changes compare with old ekg 07/201708/04/17 16:20 Interpreted by ED Physician: Yes Type: 12 lead EKG Comparison: Similar to previous EKG - Medication Orders Current Medication Orders: Sodium Chloride (Sodium Chloride 0.9%) 1,000 mls @ 100 mls/hr IV .Q10H HENRIQUE Last Admin: 08/04/17 11:25 Dose: 100 mls/hr eMAR Start Stop Document 08/04/17 11:25 HI (Rec: 08/04/17 11:25 HI [id number]) Intravenous Solution Start Date 08/04/17 Start Time 11:25 Insulin Human Regular (Humulin R Low) 0 units SC ACHS HENRIQUE PRN Reason: Protocol Thiamine HCl (Vitamin B1 Tab) 100 mg PO ONCE ONE Stop: 08/05/17 11:13 - Scribe Statement The provider has reviewed the documentation as recorded by the Kami Diaz Provider Scribe Attestation: All medical record entries made by the Scribe were at my direction and personally dictated by me. I have reviewed the chart and agree that the record accurately reflects my personal performance of the history, physical exam, medical decision making, and the department course for this patient. I have also personally directed, reviewed, and agree with the discharge instructions and disposition. Disposition/Present on Arrival - Present on Arrival Any Indicators Present on Arrival: No History of DVT/PE: No History of Uncontrolled Diabetes: No Urinary Catheter: No History of Decub. Ulcer: No History Surgical Site Infection Following: None - Disposition Have Diagnosis and Disposition been Completed?: Yes Diagnosis: Altered mental status, unspecified, Confusion, Hallucination Disposition: HOSPITALIZED Disposition Time: 15:25 Patient Plan: Admission Patient Problems: Current Active Problems Problem Status Onset Altered mental status, unspecified Acute Confusion Acute Hallucination Acute Condition: STABLE
[2017-08-04] MEDS: Sodium Chloride 0.9% 1,000 ML IV SCH ×2 (11:25→22:15)
[2017-08-04 11:38] LABS: BASO # 0.02 K/mm3 (0.0-2.0); BASO % 0.3 % (0.0-3.0); EOS # 0.2 (0.0-0.7); EOS % 3.9 % (1.5-5.0); GRAN # 3.54 (1.4-6.5); GRAN % 59.7 % (50.0-68.0); HEMOGLOBIN 12.6 g/dL (14.0-18.0); LYMPH # 1.8 (1.2-3.4); LYMPH % 30.5 % (22.0-35.0); MEAN CELL VOLUME 84.4 fl (80.0-105.0); MEAN CORPUSCULAR HEMOGLOBIN 25.8 pg (25.0-35.0); MEAN CORPUSCULAR HGB CONC 30.6 g/dl (31.0-37.0); MEAN PLATELET VOLUME 9.7 fl (7.0-11.0); MONO # 0.3 (0.1-0.6); MONO % 5.6 % (1.0-6.0); RBC 4.88 10^6/uL (3.5-6.1); RED CELL DISTRIBUTION WIDTH 15.8 % (11.5-14.5); WHITE BLOOD COUNT 5.9 10^3/ul (4.5-11.0)
[2017-08-04 11:46] LABS: URINE BILIRUBIN NEGATIVE (NEGATIVE); URINE BLOOD SMALL (NEGATIVE); URINE GLUCOSE (UA) NEGATIVE (NEGATIVE); URINE LEUKOCYTE ESTERASE NEGATIVE Leu/uL (NEGATIVE); URINE NITRATE NEGATIVE (NEGATIVE); URINE PROTEIN NEGATIVE mg/dL (<30 mg/dL); URINE UROBILINOGEN 0.2 E.U./dL (<1 E.U./dL)
[2017-08-04 11:48] LABS: URINE APPEARANCE CLEAR (CLEAR); URINE COLOR YELLOW (YELLOW)
[2017-08-04 11:59] LABS: URINE AMORPHOUS SEDIMENT SMALL; URINE BACTERIA MANY (NEG); URINE WBC 0 - 2 /hpf (0-6)
[2017-08-04 12:00] LABS: ALB/GLOB RATIO 1.4 (1.1-1.8); ALBUMIN 4.2 g/dL (3.0-4.8); ALT/SGPT 49 U/L (7-56); AST/SGOT 29 U/L (17-59); BLOOD UREA NITROGEN 12 mg/dL (7-21); CALCIUM 9.6 mg/dL (8.4-10.5); GFR AFRICAN-AMERICAN > 60; GFR NON-AFRICAN AMERICAN > 60; MAGNESIUM 1.8 mg/dL (1.7-2.2)
--- NOTE | 2017-08-04 12:01 | CT ---
PROCEDURE: CT HEAD WITHOUT CONTRAST. HISTORY: increased confusion x 1 week COMPARISON: Noncontrast head CT performed 07/16/17 TECHNIQUE: Axial computed tomography images were obtained through the head/brain without intravenous contrast. Radiation dose: Total exam DLP = 925.07 MGy-cm. This CT exam was performed using one or more of the following dose reduction techniques: Automated exposure control, adjustment of the mA and/or kV according to patient size, and/or use of iterative reconstruction technique. FINDINGS: HEMORRHAGE: No intracranial hemorrhage. BRAIN: No mass effect or edema. Intracranial atherosclerosis. Dilated perivascular spaces vs chronic lacunar infarcts about basal ganglia. The day-white matter differentiation appears intact. Please note that MRI with diffusion imaging is more sensitive in the detection of acute ischemic event. VENTRICLES: No hydrocephalus. CALVARIUM: Unremarkable. PARANASAL SINUSES: Unremarkable as visualized. No significant inflammatory changes. MASTOID AIR CELLS: Unremarkable as visualized. No inflammatory changes. OTHER FINDINGS: None. IMPRESSION: No acute intracranial pathology identified. Additional findings as above.
--- NOTE | 2017-08-04 12:06 | RAD ---
HISTORY: AMS COMPARISON: Chest x-ray performed 07/16/17 TECHNIQUE: Chest PA and lateral FINDINGS: Examination limited by habitus and hypoinflation. LUNGS: No focal consolidation. PLEURA: No significant pleural effusion identified. No definite pneumothorax . CARDIOVASCULAR: Borderline cardiomegaly, likely exaggerated by technique and hypoinflation. OSSEOUS STRUCTURES: Degenerative changes. VISUALIZED UPPER ABDOMEN: Marked elevation of the right hemidiaphragm. OTHER FINDINGS: None. IMPRESSION: Marked elevation of the right hemidiaphragm. Hypoinflation.
[2017-08-04 12:09] LABS: TROPONIN I < 0.01 ng/mL
[2017-08-04 12:11] LABS: BARBITURATES, UR NEGATIVE (NEGATIVE); OPIATES, UR NEGATIVE (NEGATIVE); PHENCYCLIDINE, UR NEGATIVE (NEGATIVE)
[2017-08-04 12:13] LABS: BENZODIAZEPINES, UR POSITIVE (NEGATIVE)
[2017-08-04 12:16] LABS: CK-MB 3.7 ng/mL (0.0-3.6)
[2017-08-04 12:24] LABS: ACETAMINOPHEN < 10.0 ug/ml (10.0-20.0); SALICYLATE < 1 mg/dL (2.0-20.0)
[2017-08-04] MEDS: Insulin Reg-LOW-Coverage SC SCH ×2 (16:50→22:59)
[2017-08-04] MEDS ORDERED: Oxycodone/Acetaminophen 5/325 mg Tab PO STA (17:21)
--- NOTE | 2017-08-04 17:57 | CARD ---
APPROVED REPORT EKG Measurement Heart [id number] <Conclusion> Sinus tachycardia Inferior infarct, age undetermined Anteroseptal infarct, age undetermined Abnormal ECG
[2017-08-04] MEDS: Oxycodone/Acetaminophen 10/325 mg Tab PO PRN (22:22)
[2017-08-05] MEDS ORDERED: Pneumococcal 23-Valent Vaccine IM ONE (00:39)
[2017-08-05] MEDS ORDERED: Influenza Vaccine 60 mcg/0.5 mL SYR (4YR UP) IM ONE (00:39)
[2017-08-05] MEDS: Insulin Reg-LOW-Coverage SC SCH ×4 (07:55→22:06)
[2017-08-05] MEDS: Enoxaparin 40 mg Syringe SC SCH (09:15)
[2017-08-05] MEDS: buPROPion 300 mg/24 Hours XL Tab PO SCH (09:15)
[2017-08-05] MEDS: Oxycodone/Acetaminophen 10/325 mg Tab PO PRN ×3 (09:20→22:03)
--- NOTE | 2017-08-05 12:26 | CON ---
DATE: 08/05/2017 PULMONARY CONSULTATION REFERRING PHYSICIAN: Dr. Олег Stallworth. REASON FOR CONSULTATION: Recent right rib fractures. Abnormal chest x-ray. History is obtained via extensive discussion with the nurse. I have also reviewed the chart at length, and discussed the case with the patient at length. HISTORY OF PRESENT ILLNESS: The patient is a 56-year-old male, with past medical history significant for recent fall (sustaining multiple right-sided rib fractures), hypertension, diabetes mellitus, coronary artery disease, anemia, depression and anxiety, who presented to [facility] - accompanied by the son - with main complaint of confusion for the past week. The son also noted auditory and visual hallucinations. The patient was thus admitted for additional evaluation. Again, I did discuss the case with the patient and nurse at length. There is no history of shortness of breath at rest, dyspnea on exertion, cough or sputum production. There is also no history of chest pain, coughing up of blood, or chest pain - made worse with deep respirations. There is no history of temperatures, chills or infectious exposure. There is no history of night sweats, weight loss or appetite change prior to the above events. No history of leg or calf pains. No history of syncope or diaphoresis. No history of recent travel. REVIEW OF SYSTEMS: No history of nausea, vomiting or diarrhea. No acute urinary symptoms. No new musculoskeletal complaints. Rest of the review of systems negative. ALLERGIES: NO KNOWN ALLERGIES. SOCIAL HISTORY: Positive for former tobacco usage. No alcohol. FAMILY HISTORY: No inheritable diseases. HOME MEDICATIONS: Include Glucophage, Wellbutrin, Zestril, Lexapro and oxycodone. PHYSICAL EXAMINATION: GENERAL: The patient appears very comfortable this morning. He is not short of breath at rest. VITALS: Temperature is 98.0, pulse 88, respirations 16/18, blood pressure 137/97. Oxygen saturation on room air is 95%. HEENT: Normocephalic, atraumatic. No JVD. CARDIOVASCULAR: Positive S1, S2. No S3 gallop. LUNGS: Clear bilaterally. EXTREMITIES: Mild edema is noted in the legs. No cyanosis or clubbing. Calves are nontender to palpation. GI: Abdomen is soft, nontender and nondistended. Bowel sounds are positive. SKIN: No acute rash. NEUROLOGIC: Limited at the present time. LABORATORY DATA: Chest x-ray was done on 08/04/2017 and reviewed. There is elevation of the right hemidiaphragm. This elevation-- in the right hemidiaphragm-- has been seen on films dating back to 2013. The patient also had a CAT scan of the chest on 07/16/2017. There are multiple right sided rib fractures noted. There is also some linear scarring noted at the right base. There is no lymphadenopathy. CBC: White count 5.9, hemoglobin 12.6, hematocrit 41.2, platelets of 277,000. Complete metabolic profile: Potassium 3.4, glucose 115, creatinine kinase 304. Rest of the metabolic profiles within normal limits. IMPRESSION: 1. Encephalopathy - improved. 2. Abnormal chest x-ray. 3. Status post recent right sided rib fractures. 4. Mild anemia. PLAN: Again, I did discuss the case with the nurse at length. I have also discussed the case with the patient at length, and reviewed the chart at length. The patient presents to [facility] with increasing confusion for the past week. In addition, the son did note auditory and visual hallucinations(?? secondary to pain meds). The patient was thus admitted for additional evaluation. At this point in time, the patient is very comfortable at rest. He denies any pulmonary symptoms. The nurse also denies any signs of shortness of breath or cough. On physical exam, his lungs remain clear. There is no significant alveolar-arterial gradient. I have also reviewed the chest x-ray as above. The elevated right hemidiaphragm dates back multiple years. There was also a recent CAT scan chest done - noted above. At this point in time, no additional pulmonary intervention is needed or warranted. I have advised the patient and nurse-- that the patient should be out of bed as much as possible. Psychiatric evaluation has been ordered. I will thus follow up on this patient again as requested. Please call me for any additional pulmonary questions or problems with this patient. Thank you very much for this pulmonary consultation. Wil Olivas MD [facility]
--- NOTE | 2017-08-05 19:44 | HP ---
HISTORY OF PRESENT ILLNESS: This is a 56-year-old male who has come into the hospital with changes in his mental status. He has been having confusion and hallucinations after he had a fall about 3 weeks ago. The patient has a past medical history of hypertension, diabetes, depression, and anxiety. The patient was brought in by his son to the emergency room because of confusion for the past week. The patient states he has been having hallucinations. He states he sometimes sees people and family members. He has been seeing cats. The patient has had changes in his speech. He has been mumbling in the morning. The patient says he is improved today. He has no chest pain or shortness of breath. No nausea, no vomiting, no dysuria or frequency, no nocturia, no weakness in the arms or the legs. He has been taking oxycodone for pain in his right ribs after his fall. He also is on antidepressants. He has been taking Xanax. The patient was recently admitted to the hospital 06/11/2017 because of confusion after a fall. The patient has been taking Xanax and opiates. REVIEW OF SYSTEMS: All other review of symptoms are within normal limits except that was mentioned. ALLERGIES: NO KNOWN DRUG ALLERGIES. HOME MEDICATIONS: Lexapro, Zestril, Wellbutrin, oxycodone, Xanax. PAST MEDICAL HISTORY: Anxiety, depression, hypertension, dyslipidemia. SOCIAL HISTORY: He denies smoking or alcohol. He quit smoking 8 years ago and he quit drinking in 1993. FAMILY HISTORY: Diabetes in the family. Medications had been reviewed. PHYSICAL EXAMINATION VITAL SIGNS: He has a temperature of 98, pulse of 109, blood pressure is 137/97, respirations 19, O2 saturation is 96%. Height is 5 feet 3 inches, weight is 256 pounds, BMI is 45. GENERAL: The patient lying in bed, uncomfortable, and in no acute distress. HEENT: Atraumatic and normocephalic. Anicteric sclerae. Moist mucosa. [place] conjunctivae. No oral lesions. NECK: No JVD, anterior and posterior adenopathy, thyromegaly, or bruits. CARDIOVASCULAR: S1 and S2 regular. No murmur, rubs, or gallop. LUNGS: Clear to auscultation bilaterally. No wheezes, rales, or rhonchi. ABDOMEN: Bowel sounds are positive. Soft, nontender and nondistended. No hepatosplenomegaly. No rebound and no guarding EXTREMITIES: No cyanosis, clubbing, or edema. NEUROLOGIC: No facial asymmetry. Tongue is midline. No uvula deviation. Power is 5/5 upper extremity and lower extremity. Sensation intact in upper extremity and lower extremity. PSYCHIATRIC: He is awake, alert and oriented x3. No anxiety or depression. He has normal affect. GENITOURINARY: No CVA tenderness. VASCULAR: 2+ pulses in the carotid pulses and pedal pulses. SKIN: No erythema or nodules SPINE: Shows normal curvature. LABORATORY DATA: White count of 5.9, hemoglobin 12.6, and platelet count is 277. Chemistry shows a sodium of 142, potassium is 3.4, creatinine is 1.1. Urine shows blood is small, nitrites are negative, bilirubin is negative. Toxicology shows alcohol less than 10, salicylate less than 1, acetaminophen less than 10. An elbow x-ray done on 07/16/2017 of the right elbow shows no abnormalities. The chest CT done shows right rib fractures. Chest x-ray done shows marked elevation of the right hemidiaphragm, . CT of the head done shows no acute intracranial pathology. There is possibly some chronic lacunar infarcts about the basal ganglia. EKG shows sinus tachycardia of 118, QTc is 470. ASSESSMENT: 1. Delirium. 2. Visual hallucinations. 3. Right 5th, 6th and 7th rib fracture. 4. Chronic back pain, on narcotics. 5. Hypertension. 6. Diabetes type 2. 7. Right chronic back pain secondary to herniated disk. PLAN: The patient is going to be admitted to the hospital for hallucinations. This may be related to his pain as well as the narcotics and Xanax that the patient is on. He is on Lexapro. We will continue that. He is on Percocet. I will continue his Percocet. The patient is on IV fluids. I will discontinue the IV fluids at this point. He is on lisinopril for his hypertension. He is on thiamine. He is on a heart-healthy diet. We will get Psychiatry evaluation and also get Pulmonary evaluation because he complains of shortness of breath at times when walking. I will place him on DVT prophylaxis and get physical therapy to see the patient. Олег Stallworth MD [facility] # [id number]
[2017-08-06] MEDS: Oxycodone/Acetaminophen 10/325 mg Tab PO PRN ×4 (04:28→23:12)
[2017-08-06] MEDS: Insulin Reg-LOW-Coverage SC SCH ×4 (08:20→21:59)
[2017-08-06] MEDS: Enoxaparin 40 mg Syringe SC SCH (09:06)
[2017-08-06] MEDS: buPROPion 300 mg/24 Hours XL Tab PO SCH (09:06)
--- NOTE | 2017-08-06 23:54 | PN ---
DATE: SUBJECTIVE: The patient is 56-year-old seen and examined. The patient states he was brought in because he was confused and disoriented. The patient states he has been using narcotics with Xanax. He had multiple falls at home. Complained of right-sided chest pain, secondary to fall, he sustained multiple rib fractures. PHYSICAL EXAMINATION: GENERAL: He is fully awake, alert, oriented, communicative. VITAL SIGNS: He is afebrile, pulse 88, respirations 22, blood pressure 130/98. LUNGS: Bilateral fair airflow. No rhonchi or crackles. HEART: S1 and S2 audible. ABDOMEN: Soft, obese, nontender. No rebound. No guarding. NEUROLOGIC: The patient is awake, alert, communicative. LABORATORY DATA: Urinary scree is negative. Blood sugar is 113. X-ray chest showed marked elevation of right hemidiaphragm with hyperinflation. ASSESSMENT: 1. Status post fall. 2. Altered mental status secondary to narcotic with . 3. Multiple falls. 4. History of depression. 5. Multiple right rib fractures. PLAN: Currently the patient is on DVT prophylaxis, he is getting antidepressant. I will start him on incentive spirometry, physical therapy evaluation has been requested. We will reevaluate him in the a.m. Jeffery Pete MD
[2017-08-07] MEDS: Oxycodone/Acetaminophen 10/325 mg Tab PO PRN ×2 (05:55→11:13)
[2017-08-07 07:55] VITALS: BP 158/98; PULSE 57; RESP 18; TEMP 98; O2SAT 98
[2017-08-07] MEDS: Insulin Reg-LOW-Coverage SC SCH ×2 (08:02→12:43)
[2017-08-07] MEDS: Enoxaparin 40 mg Syringe SC SCH (09:42)
[2017-08-07] MEDS: buPROPion 300 mg/24 Hours XL Tab PO SCH (09:42)
--- NOTE | 2017-08-08 08:45 | CON ---
DATE: 08/05/2017 He is being seen today for a consultation. PRESENTATION: The patient is a 56-year-old white male seen at bedside. The patient was admitted to [facility] on 08/04/2017 for confusion for at least one week. He was having auditory and visual hallucinations as well. His son indicated that he has gotten very symptomatic 3 days prior,to admission with more confusion and speech changes, so he came to the ER for evaluation. Also 2 weeks prior, the patient had sustained rib fractures after falling from a ladder and hitting his ribs on a toilet bowl. He had been taking his antidepressant of alprazolam and oxycodone for the rib pain on top of one another prior to admission. Consult was called due to concerns about the hallucinations. The patient was interviewed at bedside. He indicates the events that were collaborated by the documentation leading up to admission and indicates that at this time he lives in an apartment that he and his had shared with his 27-year-old son. 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 He has held his job for the last 25 years and he indicates his income is stable. There is some financial stress, but he is doing okay. His son is contributing to the income; however, he has been having lost his job and he has been having some difficulties finding another one. The patient indicates that his 5 years ago, last 06/15. He indicates one the last year at the anniversary of her , he got very very depressed and was referred to Dr. Deejay Mcgowan for followup and he has been seeing him since. He sees him once a month. CURRENT MEDICATIONS: Wellbutrin XL 300 mg one daily in the morning, Lexapro 20 mg one daily in the morning, and Xanax 2 mg one p.o. t.i.d., all of which to deal with his depression and anxiety. He indicates that even through this, he gets depressed every year at the anniversary of his 's and it is a very very difficult situation for him. He has never been psychiatrically hospitalized. He has been regularly meeting with Dr. Mcgowan and getting his medications. PAST MEDICAL HISTORY: Medically, his history includes hypertension, diabetes type 2, history of SC, pneumonia, anemia, depression, and anxiety. SOCIAL HISTORY: He denies any use of drugs or alcohol past or current. He denies any legal history past or current. He denies any history of serving in the . FAMILY HISTORY: He has no family history of mental health issues and he has no history of suicide attempts or treatment earlier than when he saw Dr. Mcgowan. His pharmacy is [facility] in [place] and his medications were verified there. The patient grew up in [place]. He was number one of three brothers, so number one of four. His parents when he was 11 years old. They stayed with his mother. His father really did not pay any support and did not regularly keep in contact with his children. He states his childhood was okay, but he was disappointed that his father was not more of a father. His mother worked as a cyber reverse engineer and worked very hard to support her children. He indicates that he did well in school. He did not have any problems. He learned easily even a regular education program and he graduated from high school. The last year,of high school he was in the work study program. When he graduated, he worked in an [employer] shop for 15 years and then in the last 25 years, he has been working for the [employer]. He likes his job and is doing well there. He met his when he was 15 years old, they went to high school together. They at the age of 28 and have two sons, one lives with his girlfriend and is working and the other currently lives with him. He has close relationship with both of his sons. In terms of his marriage, his was sick for 11 years with cirrhosis before she and it was very difficult for him and he appears to be still in somewhat of a grief situation with this loss. He does not have a lot of friends; however, he does have a lot of family and cousins. He socializes with his sons, his cousins, and his family. These are his support system. He indicates that he does enjoy fishing and does this with one of his sons. VITAL SIGNS: The patient's current vital signs include a temperature of 98.5, pulse of 94, blood pressure of 145/98, respirations of 20, and an O2 sat of 96%. MENTAL STATUS EXAM: The patient is alert and oriented x3. His eye contact is good. His behavior is pleasant and cooperative. His speech, rate and volume are within normal limits. His mood is euthymic. His affect is full. His thoughts are goal directed. He denies being suicidal or homicidal. He denies the presence of hallucinations, delusions, or paranoia. His concentration and his focus, he reports are normal. His memory both short and care home is good. His appetite has normalized; however, he is still having some problems with his sleep due to pain in his back. LABORATORY DATA: His sugar levels have normalized today. His latest blood sugar level was normal at 108. 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 PLAN: The patient is not suicidal or homicidal and does not appear in any imminent danger of hurting himself or others. He has followup appointment with Dr. Mcgowan, he attends visits regularly. He feels his care is adequate and does not want any other referrals. His medications have been verified. He is medication compliant. At this point, I believe the interaction between the pain medication and his other medications caused the distortion in his sensorium. He is cleared now. He has not had any more hallucinations since he came to the hospital, pt deems not in imminent danger to self or others. We will sign off on this patient. This has been discussed with Dr. Philip. Please call if there are any further needs. Thank you for the consult. Lashaun Yao APN JUVENTINO
--- NOTE | 2017-08-08 09:24 | DS ---
HISTORY OF PRESENT ILLNESS: The patient is 56-year-old who came to emergency room on 08/05/2017 with altered mental status. He was hallucinating. The patient admits that he fell and had multiple rib fracture, for that he was taking Xanax with Percocet, probably that made him confused. The patient was seen and examined today, doing well. PHYSICAL EXAMINATION: GENERAL: He is awake, alert, oriented, and communicative. VITAL SIGNS: He is afebrile, pulse 67, respirations 18, and blood pressure 158/98. LUNGS: Bilateral good airflow. No rhonchi or crackles. HEART: S1, S2, audible. ABDOMEN: Soft, obese, nontender, no rebound, no guarding. MUSCULOSKELETAL: He has slight palpable tenderness in the right lower ribcage area. LABORATORY DATA: Blood sugar 136. ASSESSMENT: 1. Status post fall with multiple rib fractures. 2. Delirium and hallucinations, secondary to narcotics along with tranquilizer. 3. Morbid obesity. 4. Hypertension. 5. History of depression. PLAN: The patient is being discharged home today. He state he will take analgesic, that is Motrin. He is advised not to take narcotics. He will continue his home medications including bupropion, lisinopril and metformin. Jeffery Pete MD
== END 2017-08-07 18:30 | disposition home or self-care (01) | DRG 124 ==
LOC: ED 10:07 → ERH 14:42 → 3RNO 18:48
PROVIDERS: ADMIT Internal Medicine Nephrology; ATTEND Internal Medicine Nephrology
DX: R44.1 Visual hallucinations (principal); G93.40 Encephalopathy, unspecified; F05 Delirium due to known physiological condition; S22.41XA Multiple fractures of ribs, right side, initial encounter for closed fracture; T43.505A Adverse effect of unspecified antipsychotics and neuroleptics, initial encounter; T40.605A Adverse effect of unspecified narcotics, initial encounter; Z68.41 Body mass index [BMI] 40.0-44.9, adult; E11.9 Type 2 diabetes mellitus without complications; E78.5 Hyperlipidemia, unspecified; D64.9 Anemia, unspecified; F33.41 Major depressive disorder, recurrent, in partial remission; E66.01 Morbid (severe) obesity due to excess calories; I10 Essential (primary) hypertension; F41.9 Anxiety disorder, unspecified; W19.XXXA Unspecified fall, initial encounter; M51.9 Unspecified thoracic, thoracolumbar and lumbosacral intervertebral disc disorder; I25.2 Old myocardial infarction; Z87.01 Personal history of pneumonia (recurrent); Z87.891 Personal history of nicotine dependence; Z79.84 Long term (current) use of oral hypoglycemic drugs; Y92.009 Unspecified place in unspecified non-institutional (private) residence as the place of occurrence of the external cause